=== PATIENT | female | born 1995 | race Caucasian/White ===

== ENCOUNTER 2016-12-05 20:09 | Emergency (ER) | payer OTHER ==
[~2016-12-05] VITALS: Ht 165.1 cm; Wt 72.1 kg
[2016-12-05 20:18] VITALS: BP 122/75
[2016-12-05 21:02] LABS: HEMATOCRIT 37.8 % (34.6-47.8); HEMOGLOBIN 12.9 g/dL (11.7-16.4); WHITE BLOOD COUNT 7.9 x10^3/uL (3.4-10)
[2016-12-05 21:12] LABS: BLOOD UREA NITROGEN 9 mg/dL (7-18); C-REACTIVE PROTEIN, QUANT 0.32 mg/dL (0.02-0.49)
== END 2016-12-05 22:22 | disposition home or self-care (01) ==
LOC: ED 22:14
DX: L03.115 Cellulitis of right lower limb (principal); L01.03 Bullous impetigo
CPT/HCPCS: 36415; 80048; 82040; 84550; 85025; 85651; 86140; 99285

== ENCOUNTER 2016-12-10 13:29 | Emergency (ER) | payer OTHER ==
[~2016-12-10] VITALS: Ht 167.6 cm; Wt 71.4 kg
[2016-12-10] MEDS ORDERED: CLINDAMYCIN PMX 600MG/50ML 50 ML ONE (13:57)
[2016-12-10] MEDS ORDERED: SODIUM CHLORIDE FLUSH 10ML SYR IVF ONE (14:00)
[2016-12-10] MEDS ORDERED: CLINDAMYCIN PMX 600MG/50ML 50 ML IVPB ONE (14:00)
[2016-12-10 14:17] LABS: HEMATOCRIT 37.7 % (34.6-47.8); HEMOGLOBIN 12.8 g/dL (11.7-16.4); WHITE BLOOD COUNT 6.9 x10^3/uL (3.4-10)
[2016-12-10 14:27] LABS: BLOOD UREA NITROGEN 11 mg/dL (7-18)
[2016-12-10 15:23] VITALS: BP 116/70
== END 2016-12-10 15:30 ==
LOC: ED 14:15
DX: L03.115 Cellulitis of right lower limb (principal); E11.9 Type 2 diabetes mellitus without complications; E03.9 Hypothyroidism, unspecified; Z79.4 Long term (current) use of insulin
CPT/HCPCS: 36415; 80048; 82040; 83605; 85025; 96365

== ENCOUNTER 2017-09-29 06:15 | Emergency (ER) | payer BC, OTHER ==
[~2017-09-29] VITALS: Ht 167.6 cm; Wt 70.0 kg
[2017-09-29 06:17] VITALS: BP 125/75
[2017-09-29] MEDS ORDERED: BACITRACIN ZINC OINT 500U/GM, 0.9 GM ONE (06:47)
== END 2017-09-29 06:59 | disposition home or self-care (01) ==
LOC: ED 06:53
DX: T14.8XXA Other injury of unspecified body region, initial encounter (principal); X58.XXXA Exposure to other specified factors, initial encounter; Y93.89 Activity, other specified; Y99.8 Other external cause status; Y92.89 Other specified places as the place of occurrence of the external cause
CPT/HCPCS: 99282